=== PATIENT | female | born 1995 | race Asian ===

== ENCOUNTER 2024-04-12 05:55 | Inpatient (IN) ==
[2024-04-12] MEDS: Lactated Ringers 1000 ml BAG 1,000 ML IV ONE (06:28)
[2024-04-12] MEDS: Lactated Ringers 1000 ml BAG 1,000 ML IV SCH (06:30)
[2024-04-12 06:47] LABS: ABS Lymphocytes 1.4 10^3/uL (1.0-4.8); ABS Monocytes 0.5 10^3/uL (0.0-0.9); ABS Neutrophils 6.1 10^3/uL (1.5-7.6); ABS Nucleated RBC 0.01 10^3/ul; Eosinophil % 0.6 %; Hematocrit 37.6 % (35-45); Hemoglobin 12.8 g/dL (11.5-14.3); Lymphocyte % 17.4 %; Mean Corpuscular Hemoglobin 29.2 pg (27-33); Mean Corpuscular Volume 85.9 fL (80-97); Mean Platelet Volume 9.2 fL (7.5-11.2); Nucleated Red Blood Cells % 0.1 %/100WBC (0.0-0.8); Platelet Count 152 10^3/uL (150-450); Red Blood Count 4.37 10^6/uL (3.63-4.92); Red Cell Distribution Width 13.3 % (12-17)
[2024-04-12] MEDS ORDERED: Morphine PF AMP (0.5MG/ML) 5 MG/10 ML AMP ONE (07:00)
[2024-04-12] MEDS ORDERED: Metoclopramide 5 MG/ML VIAL (10 mg) ONE (07:00)
[2024-04-12] MEDS ORDERED: Ondansetron 4 mg VIAL 2 MG/ML 2 ml VIAL ONE (07:00)
[2024-04-12] MEDS ORDERED: Phenylephrine IV 10 MG/ML 1 ml VIAL ONE (07:05)
[2024-04-12] MEDS: Sodium Citrate/Citric Acid LIQ 15 ML UDC PO ONE (07:05)
[2024-04-12] MEDS: ceFOXitin 2 GM IVPREMIX 2 GM/50 ML BAG IVPB ONE (07:05)
[2024-04-12] MEDS ORDERED: Oxytocin 10 UNITS/ML 1 ML VIAL ONE ×2 (07:14→09:09)
[2024-04-12] MEDS: Buffered Lidocaine 1% SYRIN 1 ml INTRADERM ONE (07:24)
[2024-04-12] MEDS: Oxytocin in LR 20,000 MILLI.UNIT/1,000 ML BAG IV SCH (09:05)
[2024-04-12] MEDS ORDERED: Naloxone 0.4 mg VIAL 0.4 mg/ml 1 ml VIAL IV PUSH PRN (09:23)
[2024-04-12] MEDS ORDERED: Metoclopramide 5 MG/ML VIAL (10 mg) IV PRN (09:23)
[2024-04-12] MEDS ORDERED: Acetaminophen IV 1 GM/100ML 1,000 MG/100 ML BAG IV PRN (09:23)
[2024-04-12] MEDS ORDERED: Ondansetron 4 mg VIAL 2 MG/ML 2 ml VIAL IV PRN (09:23)
[2024-04-12] MEDS ORDERED: Witch Hazel PAD JAR TOPICAL PRN (09:38)
[2024-04-12] MEDS ORDERED: Dibucaine 1% OINT 28.35 GM TUBE PR PRN (09:38)
[2024-04-12] MEDS ORDERED: Glycerin ADULT 2.4 gm SUPP PR PRN (09:38)
[2024-04-12] MEDS ORDERED: Lactated Ringers 1000 ml BAG 1,000 ML IV SCH (10:00)
[2024-04-12 13:23] LABS: Urine Appearance Clear; Urine Bilirubin Negative (Negative); Urine Blood Negative (Negative); Urine Color Light-Yellow; Urine Glucose Negative (Negative); Urine Ketones Negative (Negative); Urine Nitrite Negative (Negative); Urine Protein Negative (Negative); Urine Specific Gravity 1.013 (1.002-1.030); Urine Urobilinogen Negative (Negative); Urine pH 5.5 (5.0-8.0)
[2024-04-12 13:30] LABS: Urine Benzodiazepine Screen None Detected (None Detect); Urine Cannabinoids Screen None Detected (None Detect); Urine Opiates Screen None Detected (None Detect)
[2024-04-13 07:26] LABS: ABS Lymphocytes 1.3 10^3/uL (1.0-4.8); ABS Monocytes 0.5 10^3/uL (0.0-0.9); ABS Neutrophils 8.2 10^3/uL (1.5-7.6); Eosinophil % 0.4 %; Hematocrit 35.4 % (35-45); Lymphocyte % 12.7 %; Mean Corpuscular Hemoglobin 29.2 pg (27-33); Mean Corpuscular Hgb Conc 33.8 g/dL (31-36); Mean Corpuscular Volume 86.3 fL (80-97); Mean Platelet Volume 9.8 fL (7.5-11.2); Platelet Count 137 10^3/uL (150-450); Red Cell Distribution Width 13.5 % (12-17)
[2024-04-15 08:03] VITALS: BP 119/76
[2024-04-15] MEDS: Varicella Virus Vaccine Live 0.5 ML VIAL SUBCUT ONE (13:43)
== END 2024-04-15 14:25 | disposition home or self-care (01) | DRG 540 ==
LOC: MCHOB 05:55
PROVIDERS: ADMIT Obstetrics & Gynecology; ATTEND Obstetrics & Gynecology